=== PATIENT | male | born 1990 | race Two or more races ===

== ENCOUNTER 2025-05-18 23:47 | Emergency (ER) | payer SELFPAY ==
[~2025-05-18] VITALS: Ht 177.8 cm; Wt 74.8 kg
[2025-05-19] MEDS ORDERED: IBUPROFEN 400 MG TABLET ONE (00:21)
[2025-05-19] MEDS ORDERED: ONDANSETRON 4 MG TAB.RAPDIS ONE (00:21)
[2025-05-19] MEDS ORDERED: TDAP [DIPH/PERTUSSIS/TET] 0.5 ML VIAL IM ONE (00:21)
[2025-05-19] MEDS: TDAP [DIPH/PERTUSSIS/TET] 0.5 ML VIAL IM ONE (00:28)
[2025-05-19] MEDS: IBUPROFEN 400 MG TABLET PO ONE (00:28)
[2025-05-19] MEDS: ONDANSETRON 4 MG TAB.RAPDIS SL ONE (00:28)
[2025-05-19] MEDS ORDERED: HYDROCODONE/APAP 5/325MG TABLET PO ONE (00:30)
[2025-05-19 00:55] VITALS: BP 135/80; TEMP 98.1; O2SAT 98
== END 2025-05-19 00:55 | disposition home or self-care (01) ==
LOC: ER 23:51
DX: S00.91XA Abrasion of unspecified part of head, initial encounter (principal); R51.9 Headache, unspecified; W22.8XXA Striking against or struck by other objects, initial encounter; Y93.89 Activity, other specified; Y92.89 Other specified places as the place of occurrence of the external cause; Y99.8 Other external cause status
CPT/HCPCS: 99284; 70450; Q0162; 90715